=== PATIENT | male | born 1960 | race African-American/Black ===

== ENCOUNTER 2017-07-15 13:46 | Observation (INO) | payer OTHER ==
[2017-07-15 14:19] LABS: ADD MAN DIFF? NO
[2017-07-15 14:20] LABS: WHITE BLOOD COUNT 6.8 10^3/ul (4.8-10.8)
[2017-07-15 14:20] LABS: BASOPHILS % 0.3 % (0.0-2.0); EOSINOPHILS # 0.1 10^3/ul (0.0-0.5); EOSINOPHILS % 0.9 % (0.0-7.0); LYMPHOCYTES # 1.7 10^3/ul (0.8-2.9); LYMPHOCYTES % 24.9 % (15.0-51.0); MEAN CORPUSCULAR HEMOGLOBIN 29.2 pg (29.0-33.0); MEAN CORPUSCULAR HGB CONC 34.2 g/dl (32.0-37.0); MEAN CORPUSCULAR VOLUME 85.4 fl (82.0-101.0); MEAN PLATELET VOLUME 12.5 fl (7.4-10.4); MONOCYTE # 0.5 10^3/ul (0.3-0.9); MONOCYTES % 6.6 % (0.0-11.0); NEUTROPHIL # 4.6 10^3/ul (1.6-7.5); PLATELET COUNT 263 10^3/UL (140-415); RED BLOOD COUNT 4.45 10^6/ul (4.70-6.10); RED CELL DISTRIBUTION WIDTH 13.3 % (11.5-14.5)
[2017-07-15 16:13] LABS: INR 2.45; PARTIAL THROMBOPLASTIN TIME 31.3 Sec (25.0-35.0); PROTIME 27.2 Sec (11.9-14.9); PT RATIO 2.1
[2017-07-15 16:55] LABS: ANION GAP 12 (8-16); BLOOD UREA NITROGEN 19 mg/dl (7-20); CALCIUM 8.7 mg/dl (8.4-10.2); CARBON DIOXIDE 26 mmol/L (21-31); CHLORIDE 103 mmol/L (97-110); CREATININE 1.07 mg/dl (0.61-1.24); GLUCOSE 96 mg/dl (70-220); POTASSIUM 3.2 mmol/L (3.5-5.1); SODIUM 138 mmol/L (135-144)
[2017-07-15 17:32] LABS: TROPONIN-I < 0.012 ng/ml (0.00-0.12)
[2017-07-15] MEDS ORDERED: ONDANSETRON 4 MG INJ IV (18:30)
[2017-07-15] MEDS ORDERED: ACETAMINOPHEN 325 MG TAB PO ×2 (18:30→20:30)
[2017-07-15] MEDS: POTASSIUM CHLORIDE (SR) 20 MEQ TAB PO (18:47)
[2017-07-15] MEDS ORDERED: morphine LIQ (10 MG/5 ML) CUP PO (20:30)
[2017-07-15] MEDS ORDERED: NACL 0.9% 3 ML SYG IV (20:30)
[2017-07-15] MEDS ORDERED: morphine 2 MG INJ IV (20:30)
[2017-07-15] MEDS ORDERED: NITROGLYCERIN (SL) 0.4 MG TAB SL (20:30)
[2017-07-15] MEDS: ATORVASTATIN 80 MG TAB PO (20:58)
[2017-07-15] MEDS: LISINOPRIL 20 MG TAB PO (20:58)
[2017-07-15] MEDS ORDERED: TRAMADOL HCL 50 MG PO (21:00)
[2017-07-15 21:21] LABS: CREATINE KINASE 149 IU/L (23-200)
[2017-07-15 21:29] LABS: B-TYPE NATRIURETIC PEPTIDE 27 PG/ML (0-125)
[2017-07-15 21:33] LABS: CK INDEX 0.7; TROPONIN-I 0.013 ng/ml (0.00-0.12)
[2017-07-15 21:42] LABS: CK-MB 1.09 ng/ml (0.0-2.4)
[2017-07-16 02:04] LABS: CREATINE KINASE 140 IU/L (23-200)
[2017-07-16 02:17] LABS: CK INDEX 0.6
[2017-07-16 02:20] LABS: CK-MB 0.82 ng/ml (0.0-2.4); TROPONIN-I < 0.012 ng/ml (0.00-0.12)
[2017-07-16 07:50] LABS: ADD MAN DIFF? NO
[2017-07-16 07:54] LABS: WHITE BLOOD COUNT 5.9 10^3/ul (4.8-10.8)
[2017-07-16 07:54] LABS: BASOPHILS % 0.2 % (0.0-2.0); EOSINOPHILS # 0.1 10^3/ul (0.0-0.5); EOSINOPHILS % 1.2 % (0.0-7.0); HEMATOCRIT 36.8 % (42.0-52.0); HEMOGLOBIN 11.9 g/dl (14.0-18.0); LYMPHOCYTES # 1.5 10^3/ul (0.8-2.9); LYMPHOCYTES % 25.8 % (15.0-51.0); MEAN CORPUSCULAR HEMOGLOBIN 28.1 pg (29.0-33.0); MEAN CORPUSCULAR HGB CONC 32.3 g/dl (32.0-37.0); MEAN PLATELET VOLUME 10.2 fl (7.4-10.4); MONOCYTE # 0.5 10^3/ul (0.3-0.9); MONOCYTES % 8.8 % (0.0-11.0); NEUTROPHIL # 3.8 10^3/ul (1.6-7.5); NEUTROPHILS % 63.8 % (39.0-77.0); PLATELET COUNT 191 10^3/UL (140-415); RED BLOOD COUNT 4.23 10^6/ul (4.70-6.10); RED CELL DISTRIBUTION WIDTH 13.3 % (11.5-14.5)
[2017-07-16 08:23] LABS: INR 2.11; PROTIME 24.2 Sec (11.9-14.9); PT RATIO 1.9
[2017-07-16 08:43] LABS: HEMOGLOBIN A1C 5.8 % (0-5.9)
[2017-07-16 08:46] LABS: ALANINE AMINOTRANSFERASE 35 IU/L (13-69); ALBUMIN 3.4 g/dl (3.3-4.9); ALBUMIN/GLOBULIN RATIO 0.89; ALKALINE PHOSPHATASE 80 IU/L (42-121); ANION GAP 12 (8-16); ASPARTATE AMINO TRANSFERASE 24 IU/L (15-46); BILIRUBIN,INDIRECT 0.3 mg/dl (0-1.1); BILIRUBIN,TOTAL 0.3 mg/dl (0.2-1.3); BLOOD UREA NITROGEN 16 mg/dl (7-20); CALCIUM 8.8 mg/dl (8.4-10.2); CARBON DIOXIDE 27 mmol/L (21-31); CHLORIDE 104 mmol/L (97-110); CHOL/HDL RATIO 2.9 RATIO; CHOLESTEROL 103 mg/dl (100-200); CREATININE 0.89 mg/dl (0.61-1.24); GLUCOSE 101 mg/dl (70-220); HDL CHOLESTEROL 35 mg/dl (28-71); LDL CHOLESTEROL,CALCULATED 55 mg/dl; POTASSIUM 3.3 mmol/L (3.5-5.1); SODIUM 140 mmol/L (135-144); TOTAL PROTEIN 7.2 g/dl (6.1-8.1); TRIGLYCERIDES 65 mg/dl (0-149)
[2017-07-16] MEDS: LISINOPRIL 20 MG TAB PO (09:13)
[2017-07-16] MEDS: SPIRONOLACTONE 25 MG TAB PO (09:13)
[2017-07-16] MEDS: ATENOLOL 50 MG TAB PO (09:13)
[2017-07-16 10:10] LABS: THYROID STIMULATING HORMONE 0.814 MIU/L (0.465-4.680)
[2017-07-16] MEDS: [UNRECOGNIZED DRUG - REMARK] XX (12:00)
[2017-07-16] MEDS: POTASSIUM CHLORIDE (SR) 20 MEQ TAB PO (13:11)
[2017-07-16] MEDS: SOD CHLORIDE 0.9% 500 ML IV (13:11)
[2017-07-16] MEDS: WARFARIN 5 MG TAB PO ×2 (13:12)
[2017-07-17] MEDS ORDERED: ATENOLOL 25 MG TAB PO (09:00)
[2017-07-17] MEDS ORDERED: LISINOPRIL 20 MG TAB PO (09:00)
[2017-07-17] MEDS ORDERED: WARFARIN 10 MG TAB PO (17:00)
== END 2017-07-16 16:45 | disposition home or self-care (01) ==
LOC: E/R 13:46 → TEL 18:25
PROVIDERS: Internal Medicine
DX: E86.0 Dehydration (principal); I95.9 Hypotension, unspecified; I10 Essential (primary) hypertension; E87.6 Hypokalemia; E66.01 Morbid (severe) obesity due to excess calories; Z68.43 Body mass index [BMI] 50.0-59.9, adult; Z86.718 Personal history of other venous thrombosis and embolism; Z79.01 Long term (current) use of anticoagulants; I25.10 Atherosclerotic heart disease of native coronary artery without angina pectoris
CPT/HCPCS: 36415; 71010; 80048; 80053; 80061; 82550; 82553; 83036; 83735; 83880; 84443; 84484; 85025; 85610; 85730; 93005; 93306; 99217; 99285-25; G0378